=== PATIENT | male | born 1965 | race Caucasian/White ===

== ENCOUNTER 2022-10-24 04:38 | Emergency (ER) | payer MEDICARE ==
[~2022-10-24] VITALS: Ht 170.2 cm; Wt 96.2 kg
[2022-10-24] MEDS ORDERED: MACROBID 100 M100 MG PO (06:37)
== END 2022-10-24 06:58 | disposition home or self-care (01) ==
LOC: ED 04:38
DX: N39.0 Urinary tract infection, site not specified (principal)
CPT/HCPCS: 36415; 74176; 80053; 81001; 85025; 96374; 96375; 99284-25; G0480; J1200; J1885; J3010; J7121

== ENCOUNTER 2022-10-26 03:54 | Emergency (ER) | payer MEDICARE ==
[~2022-10-26] VITALS: Ht 170.2 cm; Wt 96.2 kg
[~2022-10-26 03:54] MED LIST: MACROBID 100 M100 MG PO
--- OUTSIDE RECORDS SUMMARY | 2022-10-26 03:56 | XMS ---
PreManage Notification: CHELE NIETO [employer] Events No recent Security Events currently on file CRITERIA MET - [facility] - 2 Visits in 30 Days CARE PROVIDERS Papo Burroughs Physician 11/30/2017-Current PHONE: Unknown Viviana has no Care Guidelines for this patient. E.Robert VISIT COUNT (12 MO.) [address] TOTAL 3 NOTE: Visits indicate total known visits. ED/UCC VISIT TRACKING (12 MO.) 10/26/2022 03:54 [facility] TYPE: Emergency COMPLAINT: - LIP SWELLING, RASH 10/24/2022 04:41 [facility] TYPE: Emergency COMPLAINT: - PAIN RIGHT SIDE 06/18/2022 19:43 [facility] [place] TYPE: Emergency DIAGNOSES: - Dental Pain - Influenza due to other identified influenza virus with other respiratory manifestations - Cough - Periapical abscess without sinus - COUGH/ABCESS TOOTH INPATIENT VISIT TRACKING (12 MO.) No inpatient visits to display in this time frame [email or web address]
[2022-10-26] MEDS ORDERED: BENADRYL25 MG PO (06:38)
[2022-10-26] MEDS ORDERED: PREDNISONE20 MG PO (06:38)
== END 2022-10-26 06:50 | disposition home or self-care (01) ==
LOC: ED 03:54
DX: T78.40XA Allergy, unspecified, initial encounter (principal); N20.0 Calculus of kidney; Z88.8 Allergy status to other drugs, medicaments and biological substances
CPT/HCPCS: 81001; 96374; 96375; 99283-25; J1200; J1885; J2930